=== PATIENT | female | born 1985 | race Hispanic/Latino ===

== ENCOUNTER 2017-03-29 21:56 | Inpatient (IN) | payer BC ==
[2017-03-29 22:52] VITALS: BMI 34.4
[2017-03-29 23:30] LABS: BASO % 0.2 % (0.0-2.0); EOS % 0.1 % (0.0-4.0); HEMATOCRIT 38.1 % (34.0-47.0); LYMPH # 1.4 K/uL (1.0-4.3); LYMPH % 12.9 % (20.0-40.0); MEAN CELL VOLUME 95.7 fl (81.0-99.0); MEAN CORPUSCULAR HEMOGLOBIN 32.4 pg (27.0-31.0); MEAN CORPUSCULAR HGB CONC 33.8 g/dL (33.0-37.0); MEAN PLATELET VOLUME 11.9 fl (7.2-11.7); MONO # 0.2 K/uL (0.0-0.8); MONO % 1.6 % (0.0-10.0); NEUT % 85.2 % (50.0-75.0); NRBC % 0.1 % (0.0-0.0); RED CELL DISTRIBUTION WIDTH 14.6 % (11.5-14.5); WHITE BLOOD COUNT 10.6 K/uL (4.8-10.8)
[2017-03-29 23:47] LABS: ALKALINE PHOSPHATASE 330 U/L (38-126); ALT/SGPT 32 U/L (9-52); AST/SGOT 27 U/L (14-36); BILIRUBIN,TOTAL 0.5 mg/dl (0.2-1.3); BLOOD UREA NITROGEN 16 mg/dl (7-17); CARBON DIOXIDE 16 mmol/L (22-30); CHLORIDE 110 mmol/L (98-107); GFR AFRICAN-AMERICAN > 60; GLUCOSE,RANDOM 90 mg/dL (65-105); POTASSIUM 4.5 MMOL/L (3.6-5.0); SODIUM 130 mmol/l (132-148)
[2017-03-29 23:49] LABS: PARTIAL THROMBOPLASTIN TIME 27.6 Seconds (25.6-37.1)
[2017-03-29 23:50] LABS: ALB/GLOB RATIO 0.9 (1.0-2.1)
[2017-03-30] MEDS ORDERED: Betamethasone Soluspan 30 mg/5mL Inj Susp IM ONE (05:00)
[2017-03-30] MEDS ORDERED: Oxytocin 30 units/LR 500ML 30 U/500 ML BAG IV ONE (11:12)
[2017-03-30] MEDS ORDERED: ceFAZolin IV 2 gm in Dextrose 2 GM/50 ML BAG IVPB ONE (11:15)
[2017-03-30] MEDS ORDERED: Oxytocin 30 UNITS in Sodium Chloride 0.9% 500 ML IV ONE (11:30)
[2017-03-30] MEDS: Lactated Ringer's 1,000 ML IV SCH ×2 (12:48→13:53)
[2017-03-30 13:33] LABS: BASO % 0.3 % (0.0-2.0); HEMATOCRIT 38.3 % (34.0-47.0); LYMPH # 1.6 K/uL (1.0-4.3); LYMPH % 13.9 % (20.0-40.0); MEAN CELL VOLUME 96.5 fl (81.0-99.0); MEAN CORPUSCULAR HEMOGLOBIN 32.4 pg (27.0-31.0); MEAN CORPUSCULAR HGB CONC 33.5 g/dL (33.0-37.0); MEAN PLATELET VOLUME 11.9 fl (7.2-11.7); MONO # 0.3 K/uL (0.0-0.8); MONO % 2.4 % (0.0-10.0); NEUT # 9.4 K/uL (1.8-7.0); NEUT % 83.4 % (50.0-75.0); NRBC % 0.2 % (0.0-0.0); RED CELL DISTRIBUTION WIDTH 14.7 % (11.5-14.5); WHITE BLOOD COUNT 11.2 K/uL (4.8-10.8)
[2017-03-30] MEDS ORDERED: ePHEDrine 50 mg/ml Inj ONE (13:40)
[2017-03-30 14:05] LABS: ALKALINE PHOSPHATASE 321 U/L (38-126); ALT/SGPT 33 U/L (9-52); AST/SGOT 28 U/L (14-36); BILIRUBIN,TOTAL 0.5 mg/dl (0.2-1.3); BLOOD UREA NITROGEN 21 mg/dl (7-17); CALCIUM 8.7 mg/dL (8.4-10.2); CARBON DIOXIDE 14 mmol/L (22-30); CHLORIDE 108 mmol/L (98-107); GFR AFRICAN-AMERICAN > 60; GLUCOSE,RANDOM 77 mg/dL (65-105); POTASSIUM 4.6 MMOL/L (3.6-5.0); SODIUM 135 mmol/l (132-148); URIC ACID 9.2 mg/Dl (2.2-7.5)
[2017-03-30 14:12] LABS: PARTIAL THROMBOPLASTIN TIME 28.5 Seconds (25.6-37.1)
[2017-03-30] MEDS ORDERED: Morphine 1 mg/ml preservative-free Inj(Duramorph) ONE (14:30)
--- NOTE | 2017-03-30 15:49 | OBHP ---
Datetime: 03/30/2017 15:42 IP Adm Impression: , intrauterine IP Admit Plan: Admit to unit Admit Comment, IP Provider: @ 35.3 wks GA di/di twins IVF tsent from [facility] due to ml vated bp 140-150/90s and proteinuria with preeclampsia. pt arrived for evluation secondary to headach e , denies any blrury vision, ruq/epigistric pain adn reported decreaed movemtn x 2. Upon evlau tion at [facility] pt conintud to have elevated bps with no relief of headache. pt was given doris estone 03/29 17:00 as per mfm and advised repeat dose 12 hours followed by delivery. pt referred to [facility] hospt[facility] due to pretmature of both infants and possible need of services. OB: IVF Di/d twin, gestational thrombocytonepina >100,000 TECHNICAL SUPPORT ASSOCIATE: denie hx of abnormal pap, fibroids, ovarian cyst, TI PMH denies PSH: laparascopy for IVF, DxC hystersocpy FHX: deines MEDS: PNV SHX: negative etoh/tobabccod/rugs NKDA A/P @ 35.3 (yesterday 35.2 wks GA) di/di twinis IVF with preeclampsia with severe realture -s/p clestone x 2 -admissin, npo, ivf -as per mf recommend declivery -r/ba//i dw pt relagaridn iol vs cxs adn possible need for cxs following vagina delivery and also risks/bene assoicated wth mg in regards to seizure prophylaxis vs utierne atony in regard to increase d risk of pph. pt conensete for cxs, consient sgined -preop antibiocs delayed entry Pelvic Type - PN: Adequate Extremities - PN: Normal Abdomen - PN: Normal Back - PN: Normal Breast - PN: Normal Lungs - PN: Normal Heart - PN: Normal Thyroid - PN: Normal Neurologic - PN: Normal HEENT - PN: Normal General - PN: Normal Presentation- Admit Other: vettex Weight - Estimated: 3000/3000 Presentation-Admit: Vertex IP Fetus A Comments: Fetus B 145/mod rachael no delcels Cat I FHR - Baseline A Provider: 150 Membranes, Provider: Intact Contraction Comments Provider: q 1-2 min Comments, ACOG Physical Exam: GEN NAD AA Ox 3 RESP: CTAB?l CVS< RRR, +S2/S1 ABD: no ruq/epigastri pain, sont, ntn, nd, no palbpe ctx VE; long/closted poserioer vtx/vertex EXT: 3+ lE edema, negativ ehomans' sign, DTR 2+ b/l Gestation - Est Wks by US: 35.3 IP Hx Assessment: The History has been Reviewed and is Current EGA AdmitDate IP: 35.3 Vital Signs Provider: Reviewed IP Chief Complaint: Uterine contractions; Other NICHD Variability Prov Fetus A: Moderate 6-25bpm FHR Category Provider Fetus A: Category I NICHD Decel Fetus A IP Provider: None Dilatation, Provider: 0 Effacement, Provider: 0 Station, Provider: -3 Genitourinary Exam: Normal DTRs - PN: Normal
--- NOTE | 2017-03-30 15:50 | OBDS ---
DELIVERY PERSONNEL Delivery Doctor: Stu Sousa MD Cane Weigher Helper: Marizol Sosa RN Anesthesiologist: Dr. Ashton MATERNAL INFORMATION Delivery Anesthesia: Spinal Medications in Delivery: Pitocin 30 mu/500 ml, 20 mu/1000 ml Estimated Blood Loss (ml): 700 Placenta Cultured: No Maternal Complications: Other Other Maternal Complications: Preeclampsia Provider Comments: di/di twins, pltcs preeclampisa 35.3 wks GA ebl 700 ml noral appearing uteurs, tubes and ovaries b/l twin a: 15:02, apgars 9,9 weigh t6of 5lb 10 ounces, male twin b: 5lb 14 ounces, 7,9 femlae fast food delivery driver present for [facility] Dr Brenton Coffey ophthalmology surgical technician LABOR SUMMARY EDC: 05/01/2017 00:00 No. Babies in Womb: 2 Attempted: No Labor Anesthesia: None LABOR INFORMATION Reason for Induction: Not Applicable Oxytocin: N/A Group B Beta Strep: Negative Antibiotics # of Doses: 1 Antibiotics Time of Last Dose: 1440 Steroids Given: Full Course Reason Steroids Not Administered: Not Applicable MEMBRANES Membranes Rupture Method: Artificial Rupture of Membranes: 03/30/2017 15:01 Length of Rupture (hrs): 0.02 Amniotic Fluid Color: Clear Amniotic Fluid Amount: Moderate Amniotic Fluid Odor: None STAGES OF LABOR Stage 3 hrs: 0 Stage 3 min: 1 CSECTION DELIVERY Primary Indication: Severe PIH, Unfavorable Cervix CSection Urgency: Non Elective CSection Incidence: Primary Labor: No Labor Elective: Nonelective CSection Incision: Lower Uterine Transverse BABY A INFORMATION Infant Delivery Date/Time: 03/30/2017 15:02 Method of Delivery: Born in Route : No : N/A Forceps: N/A Vacuum Extraction: N/A Shoulder Dystocia : No SHOULDER DYSTOCIA BABY A Infant Delivery Date/Time: 03/30/2017 15:02 PRESENTATION/POSITION BABY A Presentation: Cephalic Cephalic Presentation: Vertex PLACENTA INFORMATION BABY A Placenta Delivery Time : 03/30/2017 15:03 Placenta Method of Delivery: Expressed Placenta Status: Delivered SCORES BABY A Heart Rate 1 min: >100 bpm Resp Effort 1 min: Good Cry Reflex Irritability 1 min: Cough or Sneeze or Pulls Away Muscle Tone 1 min: Active Motion Color 1 min: Body [place], Extremities Blue Resuscitation Effort 1 min: N/A SCORE 1 MIN: 9 Heart Rate 5 min: >100 bpm Resp Effort 5 min: Good Cry Reflex Irritability 5 min: Cough or Sneeze or Pulls Away Muscle Tone 5 min: Active Motion Color 5 min: Body [place], Extremities Blue Resuscitation Effort 5 min: N/A SCORE 5 MIN: 9 INFANT INFORMATION BABY A Gestational Age at Delivery: 35.3 Gestational Status: Infant Outcome : Liveborn Infant Condition : Stable Infant Sex: Male WEIGHT/LENGTH BABY A Birthweight (gms): 2540 Infant Weight (lb): 5 Infant Weight (oz): 10 CORD INFORMATION BABY A No. Cord Vessels: 3 Nuchal Cord : N/A Cord Blood Taken: Yes Suction: Mouth; Nose BABY B INFORMATION Delivery Date/Time: 03/30/2017 15:03 Method of Delivery : Born in Route : No : N/A Forceps : N/A Vacuum Extraction: N/A Shoulder Dystocia : No SHOULDER DYSTOCIA BABY B Delivery Date/Time: 03/30/2017 15:03 ROM/PLACENTA INFO BABY B Rupture of Membranes: 03/30/2017 15:01 Length of Rupture (hrs): 0.03 Placenta Delivery Time : 03/30/2017 15:04 Placenta Method of Delivery: Spontaneous Placental Status : Delivered SCORES BABY B Heart Rate 1 min: Slow, Below 100 bpm Resp Effort 1 min: Slow, Irregular Reflex Irritability 1 min: Cough or Sneeze or Pulls Away Muscle Tone 1 min: Active Motion Color 1 min: Body [place], Extremities Blue Resuscitation Effort 1 min: Tactile Stimulation; Oxygen; PPV/NCPAP SCORE 1 MIN: 7 Heart Rate 5 min: >100 bpm Resp Effort 5 min: Good Cry Reflex Irritability 5 min: Cough or Sneeze or Pulls Away Muscle Tone 5 min: Active Motion Color 5 min: Body [place], Extremities Blue Resuscitation Effort 5 min: N/A SCORE 5 MIN: 9 INFORMATION BABY B Gestational Age at Delivery: 35.3 Gestational Status : Outcome : Liveborn Infant Condition : Stable Sex : Female WEIGHT/LENGTH BABY B Infant Birthweight (gms): 2670 Weight (lb) : 5 Weight (oz): 14 CORD INFORMATION BABY B No. Cord Vessels : 3 Nuchal Cord : N/A Cord Blood Taken : Yes
--- NOTE | 2017-03-30 15:57 | PCM.SURG1 ---
Surgeon's Initial Post Op Note - Surgeon's Notes Surgeon: Ni Sousa MD Video Control Engineer: Brenton Coffey DO Type of Anesthesia: Spinal Pre-Operative Diagnosis: Pretemr intrautine , di/di twins IVF preeclampsaia Operative Findings: live male and female ifnat both cepahlic presentatin, agprs 9,9 for twin A weight of 5lb10 ounces male, baby b female 5lb 14 ounces, agprs 7,9 normalappearing uterus, tubes and ovaries bialtarlly, pediatrical presnt for delivery. Dr Brenton Coffey was digital assistant and essential in gainig entry, retraction, expsoure, holding bladder blade, helpign to delive r both infants, cloasign all layers, obtainign hemosasi, and was present for entire case. Post-Operative Diagnosis: same as above Operation Performed: Primary low transverse cesearean section Specimen/Specimens Removed: placenta x 2 Estimated Blood Loss: EBL {In ML}: 700 Blood Products Given: N/A Drains Used: No Drains Post-Op Condition: Good Date of Surgery/Procedure: 03/30/17 Time of Surgery/Procedure: 15:00
[2017-03-30] MEDS ORDERED: Oxycodone/Acetaminophen 5/325 mg Tab PO PRN ×3 (15:58→16:57)
[2017-03-30] MEDS ORDERED: Simethicone 80 mg Chewtab PO SCH (16:00)
[2017-03-30] MEDS: ceFAZolin IV 1 gm in Dextrose 1 GM/50 ML BAG IVPB SCH (21:00)
[2017-03-30] MEDS ORDERED: ceFAZolin IV 1 gm in Dextrose 1 GM/50 ML BAG IVPB SCH (21:00)
[2017-03-30] MEDS: Simethicone 80 mg Chewtab PO SCH (21:53)
[2017-03-31] MEDS: Simethicone 80 mg Chewtab PO SCH ×4 (05:01→21:00)
[2017-03-31 06:22] LABS: BASO # 0.1 K/uL (0.0-0.2); BASO % 0.4 % (0.0-2.0); LYMPH # 1.7 K/uL (1.0-4.3); LYMPH % 10.9 % (20.0-40.0); MEAN CELL VOLUME 95.1 fl (81.0-99.0); MEAN CORPUSCULAR HEMOGLOBIN 32.4 pg (27.0-31.0); MEAN CORPUSCULAR HGB CONC 34.1 g/dL (33.0-37.0); MEAN PLATELET VOLUME 12.2 fl (7.2-11.7); MONO # 0.9 K/uL (0.0-0.8); MONO % 5.8 % (0.0-10.0); NEUT # 13.3 K/uL (1.8-7.0); NEUT % 82.9 % (50.0-75.0); NRBC % 0.2 % (0.0-0.0); RED CELL DISTRIBUTION WIDTH 14.7 % (11.5-14.5)
[2017-03-31] MEDS: Multivitamin With Minerals Tab PO SCH (08:29)
[2017-03-31] MEDS: ceFAZolin IV 1 gm in Dextrose 1 GM/50 ML BAG IVPB SCH (08:29)
[2017-03-31] MEDS ORDERED: Multivitamin With Minerals Tab PO SCH (09:00)
[2017-03-31] MEDS ORDERED: Bisacodyl 5mg EC Tab PO PRN ×2 (15:58)
[2017-04-01] MEDS: Simethicone 80 mg Chewtab PO SCH ×4 (04:48→22:44)
[2017-04-01 05:53] LABS: BASO # 0.1 K/uL (0.0-0.2); BASO % 0.5 % (0.0-2.0); EOS # 0.1 K/uL (0.0-0.7); EOS % 0.7 % (0.0-4.0); HEMATOCRIT 35.9 % (34.0-47.0); LYMPH # 1.9 K/uL (1.0-4.3); LYMPH % 15.2 % (20.0-40.0); MEAN CELL VOLUME 95.8 fl (81.0-99.0); MEAN CORPUSCULAR HEMOGLOBIN 32.3 pg (27.0-31.0); MEAN CORPUSCULAR HGB CONC 33.7 g/dL (33.0-37.0); MEAN PLATELET VOLUME 11.4 fl (7.2-11.7); MONO # 0.9 K/uL (0.0-0.8); MONO % 6.7 % (0.0-10.0); NEUT # 9.8 K/uL (1.8-7.0); NEUT % 76.9 % (50.0-75.0); RED CELL DISTRIBUTION WIDTH 14.9 % (11.5-14.5); WHITE BLOOD COUNT 12.7 K/uL (4.8-10.8)
[2017-04-01 06:16] LABS: BLOOD UREA NITROGEN 30 mg/dl (7-17); CARBON DIOXIDE 21 mmol/L (22-30); CHLORIDE 109 mmol/L (98-107); GFR AFRICAN-AMERICAN > 60; GLUCOSE,RANDOM 93 mg/dL (65-105); POTASSIUM 4.3 MMOL/L (3.6-5.0); SODIUM 136 mmol/l (132-148)
--- NOTE | 2017-04-01 07:54 | OBPPN ---
Datetime: 04/01/2017 07:50 PP Pain Prov: Within normal limits PP Nausea Prov: Denies PP Flatus Prov: Yes PP Breasts Prov: Normal PP Heart Prov: Normal PP Lungs Prov: Normal PP Abdomen/Uterus Prov: Normal PP Lochia Prov: Normal PP Vulva/Perineum Prov: Normal PP CVA Tenderness Prov: Normal PP Extremities Prov: Normal PP C/S Incision Prov: Normal PP Progress Prov: Normal PP Impression Prov: Normal progression PP Plan Prov: Continue present management PP Progress Note Prov: pt seen and examiend and reports seda clay iwth meidcatin. pt reports a ble ot urinate, voiding, passing flatus, tolerating regualr diet, denies an yfever, chills, nasue, vo miting, cp, sob, headahces, blurry vision, ruq/epigatr pain VS: 150/80-90s PE; see above a/p s/p PLTCS POD #2 -cont to observe bp --cont curerngt manamgnet -will reevlate and consider magnesium / repeat labs -pain mangnet -encoaurge ambulations, breast feedig Vital Signs Provider PP: Reviewed; Within Normal Limits
[2017-04-01 08:56] LABS: BASO # 0.1 K/uL (0.0-0.2); BASO % 0.9 % (0.0-2.0); EOS # 0.1 K/uL (0.0-0.7); EOS % 0.4 % (0.0-4.0); HEMATOCRIT 36.8 % (34.0-47.0); LYMPH # 1.9 K/uL (1.0-4.3); LYMPH % 14.6 % (20.0-40.0); MEAN CELL VOLUME 95.6 fl (81.0-99.0); MEAN CORPUSCULAR HEMOGLOBIN 32.3 pg (27.0-31.0); MEAN CORPUSCULAR HGB CONC 33.7 g/dL (33.0-37.0); MEAN PLATELET VOLUME 11.6 fl (7.2-11.7); MONO # 0.8 K/uL (0.0-0.8); MONO % 5.7 % (0.0-10.0); NEUT # 10.3 K/uL (1.8-7.0); NEUT % 78.4 % (50.0-75.0); NRBC % 0.7 % (0.0-0.0); RED CELL DISTRIBUTION WIDTH 14.8 % (11.5-14.5); WHITE BLOOD COUNT 13.1 K/uL (4.8-10.8)
[2017-04-01 09:08] LABS: PARTIAL THROMBOPLASTIN TIME 24.9 Seconds (25.6-37.1)
[2017-04-01 09:18] LABS: ALB/GLOB RATIO 0.8 (1.0-2.1); ALKALINE PHOSPHATASE 197 U/L (38-126); ALT/SGPT 29 U/L (9-52); AST/SGOT 28 U/L (14-36); BILIRUBIN,TOTAL 0.3 mg/dl (0.2-1.3); BLOOD UREA NITROGEN 29 mg/dl (7-17); CALCIUM 8.2 mg/dL (8.4-10.2); CARBON DIOXIDE 20 mmol/L (22-30); CHLORIDE 109 mmol/L (98-107); GFR AFRICAN-AMERICAN > 60; GLUCOSE,RANDOM 118 mg/dL (65-105); POTASSIUM 4.1 MMOL/L (3.6-5.0); SODIUM 136 mmol/l (132-148); TOTAL PROTEIN 5.7 G/DL (6.3-8.2)
[2017-04-01] MEDS: Multivitamin With Minerals Tab PO SCH (09:19)
[2017-04-01] MEDS: Oxycodone/Acetaminophen 5/325 mg Tab PO PRN ×3 (09:26→22:52)
--- NOTE | 2017-04-01 12:33 | OP ---
PROCEDURE DATE: 03/30/2017 PREOPERATIVE DIAGNOSIS: Pre-term intrauterine , Dichorionic/Diamniotic twins, in vitro fertilization preeclampsia. POSTOPERATIVE DIAGNOSIS: Pre-term intrauterine , Dichorionic/Diamniotic twins, in vitro fertilization preeclampsia. SURGEON: Ni Sousa MD. LONG TERM CARE PHARMACIST SURGEON: Brenton Coffey DO TYPE OF ANESTHESIA: Spinal. OPERATIVE FINDINGS: Live male and female , both cephalic presentation. Apgars 9 and 9 for twin A, weight of 5 pounds 10 ounces, male. Baby B, female, 5 pounds 14 ounces with Apgars 7 and 9; normal-appearing uterus, tubes, and ovaries bilaterally. Welt Cutter present for delivery. Dr. Brenton Coffey was the senior care assistant, essential in gaining entry, retraction, exposure, holding the bladder blade, helping to deliver both infants, closing all layers, and obtaining hemostasis and present for entire case. ____ above. OPERATION PERFORMED: Primary low transverse section. SPECIMEN REMOVED: Placenta x2. ESTIMATED BLOOD LOSS: 700 mL. BLOOD PRODUCTS: None. COMPLICATIONS: None. DRAINS: None. DESCRIPTION OF PROCEDURE: The patient was taken to the operating room where she was given spinal anesthesia. Once found to be adequate, she was placed on the operating table in dorsal supine position. The patient was prepped and draped in the usual sterile fashion. A time-out was performed, confirmed correct patient and correct procedure. The patient was given preoperative prophylactic antibiotic. A Pfannenstiel skin incision was made with the scalpel and carried in line to the underlying fascia with the Bovie. The fascia was incised in the midline and incision extended laterally with the Limon scissors. Inferior aspect of the fascial incision was grasped, elevated with Yonas clamps, and underlying rectus muscles were dissected off bluntly. Attention was then turned to the inferior aspect, which in a similar fashion was grasped with Yonas clamps and underlying rectus muscle resected off bluntly. The rectus muscle was then bluntly in the midline. The peritoneum identified and a clear space witnessed. Incision was extended laterally on the patient until there was good visualization of the bladder. The lower end of the Dillan was then reinserted and the vesicouterine peritoneum was incised in a transverse fashion with Metzenbaum scissors. The bladder flap was created digitally and the lower end of the Dillan was then reinserted. The lower uterine segment was incised in a transverse fashion and baby A's head was delivered atraumatically, followed by the delivery of the shoulders, followed by the delivery of the body, both oral and nasal passages of the baby were bulb suctioned. The umbilical cord was clamped and cut. The baby was handed off to the awaiting chief controller tower. The cord blood and cord gases were collected. Following this, the placenta was then clamped. Following this, the baby B was then brought to the uterine incision. Amniotic fluid membrane were then ruptured. Clear fluid noted. The 's head was then delivered atraumatically followed by delivery of the shoulders followed by delivery of the body. Both oral and nasal passages of the baby were bulb suctioned. The umbilical cord was clamped and cut. The baby was handed off to awaiting chief controller tower. Cord blood and cord gases were collected and sent x2. The placenta was delivered manually x2. The uterus was exteriorized and cleared off all clots and debris. The uterine incision site was repaired with 0 Vicryl in a running continuous locked fashion. The second suture of the same was used to close the uterus in a running imbricating manner. There was good hemostasis noted at the uterine incision site. There were normal tubes and ovaries bilaterally. The uterus was then returned to the abdomen. Paracolic gutters were cleared off all clots and debris. The peritoneum was re-approximated and closed with 2-0 chromic in a continuous fashion. The rectus was re-approximated and closed with 2-0 chromic in an interrupted manner. The fascia was re-approximated and closed with 0 Vicryl in a running continuous fashion. Subcutaneous space was closed with 2-0 plain in an interrupted manner. The skin was re-approximated and closed with 3-0 Monocryl in a running subcuticular fashion. At the end of the procedure, all needle, sponge and instrument counts were noted to be correct x2. The patient tolerated the procedure well and was transferred to recovery room in stable condition. Ni Sousa MD
[2017-04-02] MEDS: Oxycodone/Acetaminophen 5/325 mg Tab PO PRN (06:47)
[2017-04-02] MEDS: Simethicone 80 mg Chewtab PO SCH ×5 (06:49→21:57)
[2017-04-02] MEDS: Multivitamin With Minerals Tab PO SCH (08:39)
--- NOTE | 2017-04-02 09:31 | OBPPN ---
Datetime: 04/02/2017 09:27 PP Pain Prov: Within normal limits PP Nausea Prov: Denies PP Flatus Prov: Yes PP BM Prov: Yes PP Breasts Prov: Normal PP Heart Prov: Normal PP Lungs Prov: Normal PP Abdomen/Uterus Prov: Normal PP Lochia Prov: Normal PP Vulva/Perineum Prov: Normal PP CVA Tenderness Prov: Normal PP Extremities Prov: Normal PP C/S Incision Prov: Normal PP Progress Prov: Normal PP Impression Prov: Normal progression PP Plan Prov: Continue present management PP Plan Other Prov: Elevated BP PP Progress Note Prov: Pt seen and examined adn reports pain well controlled with medicaion. pt mart e any headachea, blurry vision, ruq/epigastri pain. pt reprots voiding without difficulyt, ambualting , passing flatus, ot is brest feeding. VS BP 140-150/90s PE: GEN NAD AA ox 3 BREAST :NT, non engorageb b/l RES: CTAB/l CVS RRR, +S1/S2 ABS: soft, NT/ND, +BS< incison c/d/i healing wel FUNDUS: FIRm, belwo lelve of umbiucs VE: minimal lochia non fouls smelling EXT NO calf tenderness b/l, 1+ edema b/l A/p s/p PLTCS POD #3 for twins with preeclampsia with elevated bps -Labetaol 200mg stat po x 1 -For medicine consult -cont current managment IP PP Procedures: None Vital Signs Provider PP: Reviewed
--- NOTE | 2017-04-02 12:49 | CP.PCM.CON ---
History of Present Illness - History of Present Illness History of Present Illness: CC/Reason for consult: HTN HPI: This is a 31 y/o female with no chronic medical conditions who is now s/p c section for delivery of twins, POD#3. She had been transferred here from [facility] prior to c section for symptoms of pre-eclampsia, including elevated SBP to 140-150s and protinuria. She was not given Mg prior to the c section for fear of PPH. After delivery, she has continued to have SBPs as high as 140-150. Denies CP, SOB. States she does have occasional MEJIA. Unaware of blood in urine or significant protinuria. Has also noted worsening LE edema, especially since receiving 2 L NS prior to her procedure. Denies any prior problems with BP or protinuria. Denies other symptoms including f/c/n/v/d. ROS: 14 systems reviewed, negative other than HPI MHx: Pre-eclampsia prior to this delivery SHx: C section, IVF/Laparoscopy, hysteroscopy in the past Allergies: NKDA Medications: As per inpatient orders Family Hx: Father has HTN Social Hx: Lives with family, no tobacco, no EtOH Past Patient History - Past Social History Smoking Status: Never Smoked Meds Allergies/Adverse Reactions: Allergies Allergy/AdvReac Type Severity Reaction Status Date / Time No Known Allergies Allergy Verified 03/29/17 16:52 - Medications Medications: Current Medications Bisacodyl (Dulcolax) 10 mg PO DAILY PRN PRN Reason: Constipation Last Admin: 04/01/17 22:43 Dose: 10 mg Docusate Sodium (Colace) 100 mg PO BID [facility] Last Admin: 04/02/17 08:39 Dose: 100 mg Ibuprofen (Motrin Tab) 600 mg PO Q4H PRN PRN Reason: Pain, Mild (1-3) Last Admin: 04/02/17 12:44 Dose: 600 mg Labetalol HCl (Trandate) 200 mg PO BID [facility] Last Admin: 04/02/17 09:47 Dose: 200 mg Metoclopramide HCl (Reglan) 10 mg IVP ONCE PRN PRN Reason: Nausea/Vomiting Multivitamins/Minerals (Therapeutic-M Tab) 1 tab PO DAILY [facility] Last Admin: 04/02/17 08:39 Dose: 1 tab Ondansetron HCl (Zofran Inj) 4 mg IVP ONCE PRN PRN Reason: Nausea/Vomiting Oxycodone/Acetaminophen (Percocet 5/325 Mg Tab) 1 tab PO Q4 PRN PRN Reason: Pain, moderate (4-7) Stop: 04/02/17 15:59 Last Admin: 04/02/17 06:47 Dose: 1 tab Oxycodone/Acetaminophen (Percocet 5/325 Mg Tab) 2 tab PO Q4 PRN PRN Reason: Pain, severe (8-10) Stop: 04/02/17 15:59 Sennosides (Senokot Tab) 17.2 mg PO HS [facility] Last Admin: 04/01/17 22:44 Dose: 17.2 mg Simethicone (Mylicon Chew Tab) 80 mg PO Q6 [facility] Last Admin: 04/02/17 11:20 Dose: Not Given Physical Exam - Constitutional Appears: No Acute Distress - Head Exam Head Exam: ATRAUMATIC, NORMOCEPHALIC - Eye Exam Eye Exam: EOMI, PERRL - ENT Exam ENT Exam: Mucous Membranes Moist - Neck Exam Neck exam: Positive for: Full Rom - Respiratory Exam Respiratory Exam: Clear to Auscultation Bilateral, NORMAL BREATHING PATTERN - Cardiovascular Exam Cardiovascular Exam: REGULAR RHYTHM, +S1, +S2 - GI/Abdominal Exam GI & Abdominal Exam: Normal Bowel Sounds, Soft - Extremities Exam Extremities exam: Positive for: full ROM, pedal edema - Neurological Exam Neurological exam: Alert, CN II-XII Intact, Oriented x3 - Psychiatric Exam Psychiatric exam: Normal Affect, Normal Mood - Skin Skin Exam: Dry, Warm Results - Vital Signs Recent Vital Signs: Last Vital Signs Temp 98.6 F 03/30/17 01:08 Pulse 90 04/02/17 09:47 Resp 16 03/30/17 01:08 BP 149/93 H 04/02/17 09:47 Pulse Ox 100 03/30/17 01:08 - Labs Result Diagrams: 04/01/17 08:35 04/01/17 08:35 Labs: Laboratory Results - last 24 hr 03/29/17 23:26 Crossmatch See Detail Assessment & Plan (1) Hypertension in , transient, Assessment and Plan: 31 y/o female s/p delivery of twins with complicated by pre- eclampsia. Also noted to have hyperchloremic acidosis and elevated WC. 1) HTN, LE edema -Agree with continuation of PO labetolol BID as ordered; will monitor and titrate up if needed -Continue LE compression stockings and elevation; if not resolving over next several days, may consider brief diuresis -Check UA for elevated protein, blood 2) Hyperchloremic acidosis -- likely 2/2 to IV NS infusion -Hold further NS infusions -re check BMP tomorrow 3) Elevated WC -- may be reactive, or due to possible steroid she may have recently received; no obvious infection -Repeat CBC in tomorrow AM We will continue to follow patient. Status: Acute (2) Elevated white blood cell count Status: Acute (3) Hyperchloremic acidosis Status: Acute
[2017-04-02 19:38] LABS: RBC URINE 23 /hpf (0-3); URINE BACTERIA RARE (<OCC); URINE BILIRUBIN NEGATIVE (NEGATIVE); URINE BLOOD LARGE (NEGATIVE); URINE COLOR YELLOW (YELLOW); URINE GLUCOSE (UA) NEG (Normal); URINE KETONE NEGATIVE (NEGATIVE); URINE LEUKOCYTE ESTERASE LARGE Leu/uL (Negative); URINE PROTEIN NEGATIVE (NEGATIVE); URINE UROBILINOGEN 0.2-1.0 mg/dL (0.2-1.0); WBC URINE 30 /hpf (0-5)
[2017-04-03] MEDS: Simethicone 80 mg Chewtab PO SCH ×2 (04:31→09:17)
[2017-04-03 06:45] LABS: BASO % 0.3 % (0.0-2.0); EOS # 0.1 K/uL (0.0-0.7); EOS % 1.1 % (0.0-4.0); HEMATOCRIT 34.4 % (34.0-47.0); LYMPH # 1.7 K/uL (1.0-4.3); LYMPH % 14.1 % (20.0-40.0); MEAN CELL VOLUME 96.8 fl (81.0-99.0); MEAN CORPUSCULAR HEMOGLOBIN 32.6 pg (27.0-31.0); MEAN CORPUSCULAR HGB CONC 33.6 g/dL (33.0-37.0); MEAN PLATELET VOLUME 10.2 fl (7.2-11.7); MONO # 0.7 K/uL (0.0-0.8); NEUT # 9.6 K/uL (1.8-7.0); NEUT % 78.5 % (50.0-75.0); NRBC % 0.2 % (0.0-0.0); RED CELL DISTRIBUTION WIDTH 15.2 % (11.5-14.5); WHITE BLOOD COUNT 12.2 K/uL (4.8-10.8)
[2017-04-03 07:57] LABS: BLOOD UREA NITROGEN 15 mg/dl (7-17); CALCIUM 8.2 mg/dL (8.4-10.2); CARBON DIOXIDE 24 mmol/L (22-30); CHLORIDE 109 mmol/L (98-107); GFR AFRICAN-AMERICAN > 60; GLUCOSE,RANDOM 87 mg/dL (65-105); POTASSIUM 4.5 MMOL/L (3.6-5.0); SODIUM 138 mmol/l (132-148)
[2017-04-03] MEDS: Multivitamin With Minerals Tab PO SCH (09:16)
[2017-04-03] MEDS: Oxycodone/Acetaminophen 5/325 mg Tab PO PRN ×2 (09:17→15:16)
--- NOTE | 2017-04-03 11:37 | CP.PCM.PN ---
Subjective - Date & Time of Evaluation Date of Evaluation: 04/03/17 Time of Evaluation: 11:00 - Subjective Subjective: Pt's BP better : 129/81 at 10:00 133/84 ( my reading at 11am) Denies headcahe no blurring of vision no CP no SOB leg edema better surgical site pain controlled - took Percocet earlier Objective - Vital Signs/Intake and Output Vital Signs (last 24 hours): Temp Pulse Resp BP Pulse Ox 98.6 F 117 H 16 145/93 H 100 03/30/17 01:08 04/03/17 09:16 03/30/17 01:08 04/03/17 09:16 03/30/17 01:08 - Medications Medications: Current Medications Bisacodyl (Dulcolax) 10 mg PO DAILY PRN PRN Reason: Constipation Last Admin: 04/01/17 22:43 Dose: 10 mg Docusate Sodium (Colace) 100 mg PO BID [facility] Last Admin: 04/03/17 09:17 Dose: 100 mg Ibuprofen (Motrin Tab) 600 mg PO Q4H PRN PRN Reason: Pain, Mild (1-3) Last Admin: 04/03/17 04:29 Dose: 600 mg Labetalol HCl (Trandate) 200 mg PO BID [facility] Last Admin: 04/03/17 09:16 Dose: 200 mg Metoclopramide HCl (Reglan) 10 mg IVP ONCE PRN PRN Reason: Nausea/Vomiting Multivitamins/Minerals (Therapeutic-M Tab) 1 tab PO DAILY [facility] Last Admin: 04/03/17 09:16 Dose: 1 tab Ondansetron HCl (Zofran Inj) 4 mg IVP ONCE PRN PRN Reason: Nausea/Vomiting Oxycodone/Acetaminophen (Percocet 5/325 Mg Tab) 1 tab PO Q6 PRN PRN Reason: Pain, moderate (4-7) Stop: 04/06/17 10:01 Last Admin: 04/03/17 09:17 Dose: 1 tab Sennosides (Senokot Tab) 17.2 mg PO HS [facility] Last Admin: 04/02/17 21:57 Dose: 17.2 mg Simethicone (Mylicon Chew Tab) 80 mg PO Q6 [facility] Last Admin: 04/03/17 09:17 Dose: 80 mg - Labs Labs: 04/03/17 05:30 12/16/17 05:30 PT 9.8 Seconds (9.8-13.1) 04/01/17 08:35 INR 0.9 (0.9-1.2) 04/01/17 08:35 APTT 24.9 Seconds (25.6-37.1) L 04/01/17 08:35 - Constitutional Appears: No Acute Distress - Head Exam Head Exam: NORMAL INSPECTION, NORMOCEPHALIC - Eye Exam Eye Exam: EOMI, Normal appearance, PERRL Pupil Exam: NORMAL ACCOMODATION - ENT Exam ENT Exam: Mucous Membranes Moist, Normal External Ear Exam - Neck Exam Neck Exam: Full ROM. absent: Meningismus - Respiratory Exam Respiratory Exam: NORMAL BREATHING PATTERN. absent: Rales, Respiratory Distress - Cardiovascular Exam Cardiovascular Exam: REGULAR RHYTHM, +S1, +S2 - GI/Abdominal Exam GI & Abdominal Exam: Soft, Normal Bowel Sounds Additional comments: surgical wound with steri-strips, no signs of infection - Extremities Exam Extremities Exam: Full ROM, Normal Capillary Refill, Pedal Edema. absent: Calf Tenderness - Back Exam Back Exam: Full ROM. absent: CVA tenderness (L), CVA tenderness (R) - Neurological Exam Neurological Exam: Alert, Awake, CN II-XII Intact, Normal Gait, Oriented x3 Neuro motor strength exam: Left Upper Extremity: 5, Right Upper Extremity: 5, Left Lower Extremity: 5, Right Lower Extremity: 5 - Psychiatric Exam Psychiatric exam: Normal Affect, Normal Mood - Skin Skin Exam: Dry, Normal Color, Warm Assessment and Plan (1) Hypertension in , transient, Status: Acute (2) Elevated white blood cell count Status: Acute (3) Hyperchloremic acidosis Status: Acute - Assessment and Plan (Free Text) Assessment: (1) Hypertension in ( preeclampsia), now Status: Acute Pt had Preeclampsia - now s/p initially had high BP,pedal edema, visual sxs low platelet, elevated uric acid at present denies any symptoms- no visual sxs, no MEJIA, edema better, BP improving UA : no protein cont Labetatalol cont to monitor BP (2) Elevated white blood cell count Status: Acute prob sec to steroids given improving (3) Hyperchloremic acidosis Status: Acute improved
--- NOTE | 2017-04-03 13:25 | OBPPN ---
Datetime: 04/03/2017 13:22 PP Pain Prov: Within normal limits PP Nausea Prov: Denies PP Flatus Prov: Yes PP BM Prov: Yes PP Breasts Prov: Normal PP Heart Prov: Normal PP Lungs Prov: Normal PP Abdomen/Uterus Prov: Normal PP Lochia Prov: Normal PP Vulva/Perineum Prov: Normal PP CVA Tenderness Prov: Normal PP Extremities Prov: Normal PP C/S Incision Prov: Normal PP Progress Prov: Normal PP Comments Phys Exam Prov: Incision c/d/i healign well PP Impression Prov: Normal progression PP Plan Prov: Continue present management PP Progress Note Prov: pt seen adn examiend clarisse any pain, bleeding, passign flatus, +BM< pumping. pt denies any headaches, blurry vision, ruq/epgiatrs pain. pt requestintg d/c home VS 135-150/80-90s PE See above a/p s/p PLTCS POD #5 with hypertension -cont labtatol 200mg TID -bp precation -d/c home -rto 1 week, montior bp at home -preeclampsia precaution given -f/u PMD re: BP 1 week IP PP Procedures: None Vital Signs Provider PP: Reviewed
--- NOTE | 2017-04-03 13:27 | OBDCSUM ---
Datetime: 04/03/2017 13:24 Discharged to, Provider: Home Follow up at, Provider: Dr Sousa Disch Instr Activity: Normal activity Disch Instr Diet: Regular Discharge Instructions, Provider: Routine instructions given Discharge Diagnosis, Provider: Preeclampsia; Delivery Discharge Time: 04/03/2017 13:24 Follow up in weeks, Provider: 1 week Disch Referrals: None Contraception discussed, Prov: Yes Disch Activity Restrictions: No sexual activity; Nothing in vagina - [place], tampons, douche Discharge Comment, Provider: bp repcuation givne cont bp medicaion als f/u pcp in 1 week Discharge Diagnosis Prov Other: di/di twins 35+ weeks Contraception after Delivery: Not Planning to Use
[2017-04-04 01:21] VITALS: BP 129/81; PULSE 98; RESP 20; TEMP 98; O2SAT 96
== END 2017-04-03 19:00 | disposition home or self-care (01) | DRG 765 ==
LOC: H.EROB2 21:56 → H.L&D 22:36 → H.EROB2 23:19 → H.L&D 23:23 → H.OB/GYN 03-30 18:00
PROVIDERS: ADMIT Obstetrics & Gynecology; ATTEND Obstetrics & Gynecology
PROC: 10D00Z1 Extraction of Products of Conception, Low, Open Approach (ICD-10-PCS; principal; 2017-03-29)
PROC: 4A1HXCZ Monitoring of Products of Conception, Cardiac Rate, External Approach (ICD-10-PCS; 2017-03-29)
DX: O30.043 Twin pregnancy, dichorionic/diamniotic, third trimester (principal); O60.14X0 Preterm labor third trimester with preterm delivery third trimester, not applicable or unspecified; Z37.2 Twins, both liveborn; O99.12 Other diseases of the blood and blood-forming organs and certain disorders involving the immune mechanism complicating childbirth; I10 Essential (primary) hypertension; O13.4 Gestational [pregnancy-induced] hypertension without significant proteinuria, complicating childbirth; O66.0 Obstructed labor due to shoulder dystocia; O14.94 Unspecified pre-eclampsia, complicating childbirth; O99.284 Endocrine, nutritional and metabolic diseases complicating childbirth; O9A.22 Injury, poisoning and certain other consequences of external causes complicating childbirth; Z3A.35 35 weeks gestation of pregnancy